=== PATIENT | male | born 1995 | race African-American/Black ===

== ENCOUNTER 2017-10-14 23:35 | Emergency (ER) | payer MEDICAID ==
[~2017-10-14] VITALS: Ht 185.4 cm; Wt 79.4 kg
--- NOTE | 2017-10-14 23:59 | Emergency Room Report ---
History of Present Illness General Chief Complaint: Laceration Source: Patient Present Illness HPI The patient was escaping from a dog. He jumped over a fence and caught his left foot on the top sharp points. He has pain and some minimal bleeding. His tetanus is up-to-date. He works on his feet. Is able to wiggle his toes. There is no numbness. A friend dressed the wound. The pain is 10/10 when he stands and walk on the foot, sharp and aching. No other somatic complaints. Allergies: Coded Allergies: No Known Allergies (Unverified , 10/14/17) Patient History Past Medical History: see triage record Social History: Reports: smoking Social History Narrative works several jobs on his feet Reviewed Nursing Documentation: PMH: Agreed, PSxH: Agreed Nursing Documentation-PMH Past Medical History: No Stated History Review of Systems All Other Systems: negative except mentioned in HPI Physical Exam Vital Signs Date Time Temp Pulse Resp B/P (MAP) Pulse Ox O2 Delivery O2 Flow Rate FiO2 10/14/17 23:39 99.0 71 18 157/65 98 Room Air Sp02 EP Interpretation: reviewed, normal General Appearance: well appearing, no apparent distress Head: normocephalic, atraumatic Eyes: bilateral eye normal inspection, bilateral eye PERRL ENT: hearing grossly normal, normal voice, moist mucus membranes Neck: full range of motion, supple Respiratory: no respiratory distress, speaking full sentences Gastrointestinal: scaphoid Musculoskeletal: back normal, digits/nails normal, normal range of motion, no calf tenderness, other - L foot ttp area Neurologic: alert, motor strength/tone normal, sensory intact, speech normal Psychiatric: mood/affect normal Skin: other - puncture wounds dorsal and medail to extensor hallux tendonds Medical Decision Making Diagnostic Impression: Primary Impression: Puncture wound of left foot Qualified Codes: S91.332A - Puncture wound without foreign body, left foot, initial encounter ER Course Patient presents with 2 puncture wounds of his L foot. DDx: pw, lacs. No tendon involvement. Doubt fx. Needs cleaning and antibiotics with analgesia. Doubt risk of pseudomonas as was top of foot. Wound cleaned and irrigated then dressed. Antibiotics begun. Pain improved with analgesia. Patient stable for outpatient observation and treatment. Last Vital Signs Date Time Temp Pulse Resp B/P (MAP) Pulse Ox O2 Delivery O2 Flow Rate FiO2 10/15/17 00:52 99.0 18 157/65 98 Room Air 10/15/17 00:52 71 Status: improved Disposition: HOME, SELF-CARE Condition: Improved Scripts Bacitracin (Bacitracin) 28.4 Gm Oint...g. 1 APPLIC TOPIC BID, #10 GM Prov: Pierre Domingo M.D. 10/15/17 Tramadol Hcl* (ULTRAM*) 50 Mg Tablet 50 MG ORAL Q6H Y for For Pain, #6 TAB 0 Refills Prov: Pierre Domingo M.D. 10/15/17 Ibuprofen* (MOTRIN*) 600 Mg Tablet 600 MG ORAL Q6H Y for For Pain, #16 TAB Prov: Pierre Domingo M.D. 10/15/17 Cephalexin* (KEFLEX*) 500 Mg Capsule 500 MG ORAL EVERY 6 HOURS, #28 CAP 0 Refills Prov: Pierre Domingo M.D. 10/15/17 Pierre Domingo M.D. Oct 14, 2017 23:59
[2017-10-15] MEDS ORDERED: Cephalexin 500mg cap ORAL ONE
[2017-10-15] MEDS ORDERED: Bacitracin Oint UD TOPIC ONE
[2017-10-15] MEDS ORDERED: KEFLEX500 MG ORAL ×2 (00:38→16:13)
[2017-10-15] MEDS ORDERED: BACITRACIN15 GM TOPIC ×2 (00:38→16:13)
[2017-10-15] MEDS ORDERED: IBUPROFEN600 MG ORAL ×2 (00:38→16:13)
[2017-10-15] MEDS ORDERED: TRAMADOL HCL50 MG ORAL ×2 (00:38→16:13)
[2017-10-15 00:52] VITALS: BP 157/65
== END 2017-10-15 00:45 | disposition home or self-care (01) ==
LOC: EMR 23:50
DX: S91.332A Puncture wound without foreign body, left foot, initial encounter (principal); W17.89XA Other fall from one level to another, initial encounter; Y92.89 Other specified places as the place of occurrence of the external cause
CPT/HCPCS: 99284